=== PATIENT | female | born 2000 ===

== ENCOUNTER 2024-08-14 17:49 | Outpatient (CLI) | payer OTHER | END 2024-08-14 17:52 | disposition home or self-care (01) | LOC: PRENATAL 17:49 | PROVIDERS: ATTEND Obstetrics & Gynecology Maternal & Fetal Medicine | DX: O36.80X0 Pregnancy with inconclusive fetal viability, not applicable or unspecified (principal); Z36.82 Encounter for antenatal screening for nuchal translucency; Z14.8 Genetic carrier of other disease; Z3A.12 12 weeks gestation of pregnancy ==

== ENCOUNTER 2024-10-09 07:54 | Outpatient (CLI) | payer OTHER | END 2024-10-09 07:55 | disposition home or self-care (01) | LOC: PRENATAL 07:54 | PROVIDERS: ATTEND Obstetrics & Gynecology | DX: O44.00 Complete placenta previa NOS or without hemorrhage, unspecified trimester (principal); Z3A.20 20 weeks gestation of pregnancy ==

== ENCOUNTER 2025-01-01 08:05 | Outpatient (CLI) | payer OTHER | END 2025-01-01 08:06 | disposition home or self-care (01) | LOC: PRENATAL 08:05 | PROVIDERS: ATTEND Obstetrics & Gynecology Maternal & Fetal Medicine | DX: O26.849 Uterine size-date discrepancy, unspecified trimester (principal); O36.8130 Decreased fetal movements, third trimester, not applicable or unspecified; Z3A.32 32 weeks gestation of pregnancy ==

== ENCOUNTER 2025-01-28 12:15 | Inpatient (IN) | payer OTHER ==
[~2025-01-28] VITALS: Ht 160 cm; Wt 82.1 kg
[2025-01-28] VITALS (7 sets, daily range): BP systolic 110–141; BP diastolic 65–88
[2025-01-28] MEDS ORDERED: RINGERS SOLUTION,LACTATED 1,000 ML IV SCH (13:15)
[2025-01-28] MEDS ORDERED: FOLIC ACID20 MG PO (13:56)
[2025-01-28] MEDS ORDERED: PRENATAL + DHA1 EAC1 PO (13:56)
[2025-01-28] MEDS ORDERED: AMPICILLIN SODIUM 1,000 MG VIAL IV SCH ×2 (14:00)
[2025-01-28] MEDS ORDERED: BETAMETHASONE ACETATE,SOD PHOS 30 MG/5 ML ML IM SCH (14:00)
[2025-01-28 15:14] LABS: URINE APPEARANCE Cloudy; URINE BILIRRUBIN Small (NEGATIVE); URINE BLOOD Large; URINE COLOR Dark Yellow; URINE KETONE Trace (NEGATIVE); URINE LEUKOCYTE Small; URINE NITRATE Negative; URINE UROBILINOGEN 1.0 E.U./dl
[2025-01-28 15:18] LABS: URINE RBC 29.0 uL (0.0-20.8); URINE WBC 46.3 uL (0.0-23.2)
[2025-01-28 15:38] LABS: INR < 0.93
[2025-01-28 15:39] LABS: BASO % 0.2 % (0.1-1.2); EOS # 0.02 (0.04-0.54); EOS % 0.2 % (0.7-7.0); LYMPH # 3.32 (1.18-3.74); LYMPH % 38.2 % (19.3-53.1); MEAN PLATELET VOLUME 12.10 fl (9.4-12.4); MONO # 0.66 (0.24-0.82); MONO % 7.6 % (4.7-12.5); NEUT # 4.60 (1.56-6.13); NEUT % 53.1 % (34.0-71.1); RED CELL DISTRIBUTION WIDTH 13.8 % (11.6-14.4)
[2025-01-28 15:41] LABS: BUN CREA RATIO 20.0 (7.0-25.0); CREATININE SERUM 0.5 mg/dL (0.55-1.02); GFR 151.58; GLUCOSE FASTING 81.0 mg/dL (65-100); OSMOLALITY SERUM 277.0 MOSM/KG (275-295)
[2025-01-28 15:57] LABS: URINE BACTERIA > 9821.5 uL (0.0-1933); URINE CAST 0.58 uL (0.0-1.40); URINE CRYSTALS FEW /HPF; URINE EPITHELIAL CELLS > 201.7 uL (0.0-38.8); URINE GLUCOSE 100 MG/DL (NEGATIVE); URINE PROTEIN 100 (NEGATIVE)
[2025-01-28] MEDS ORDERED: OXYTOCIN 500 ML IV ONE (17:30)
[2025-01-28] MEDS ORDERED: MORPHINE SULFATE 4 MG/ML CARTRIDGE IV ONE (18:30)
[2025-01-28] MEDS ORDERED: ERYTHROMYCIN BASE OPHT 1GM EACH TUBE OP ONE ×2 (20:15→21:45)
[2025-01-28] MEDS ORDERED: OXYTOCIN 20 UNITS/1000ML RL PIGGYBAG IV ONE (20:15)
[2025-01-28] MEDS ORDERED: CHLORHEXIDINE GLUCONATE 120 ML BOTTLE TOP ONE (20:16)
[2025-01-28] MEDS ORDERED: LIDOCAINE HCL 1% 10ML VIAL ONE ×2 (20:16→20:44)
[2025-01-28] MEDS ORDERED: PNV,CALCIUM 72/IRON/FOLIC ACID 1 TAB TABLET PO SCH (21:24)
[2025-01-28] MEDS ORDERED: CHLORHEXIDINE GLUCONATE 120 ML BOTTLE TP SCH (21:30)
[2025-01-28] MEDS ORDERED: OXYTOCIN 1,000 ML IV SCH (21:30)
[2025-01-28] MEDS ORDERED: LIDOCAINE HCL 1% 10ML VIAL IJ ONE (21:45)
[2025-01-29 00:32] VITALS: BP 128/77
[2025-01-29 01:48] LABS: BASO % 0.2 % (0.1-1.2); EOS # 0.00 (0.04-0.54); EOS % 0.0 % (0.7-7.0); LYMPH # 2.82 (1.18-3.74); LYMPH % 16.1 % (19.3-53.1); MEAN PLATELET VOLUME 11.60 fl (9.4-12.4); MONO # 1.01 (0.24-0.82); MONO % 5.8 % (4.7-12.5); NEUT # 13.49 (1.56-6.13); NEUT % 76.9 % (34.0-71.1); RED CELL DISTRIBUTION WIDTH 13.7 % (11.6-14.4)
[2025-01-29 08:20] VITALS: BP 107/60
[2025-01-29 13:09] VITALS: BP 112/70
[2025-01-29 16:04] VITALS: BP 114/76
[2025-01-30 00:08] VITALS: BP 102/60
[2025-01-30 08:05] VITALS: BP 112/74
== END 2025-01-30 20:03 | disposition home or self-care (01) | DRG 805 ==
LOC: LDR 12:15 → OB/GYN 12:15 → LDR 14:47 → OB/GYN 20:53
PROVIDERS: General Practice; ADMIT Obstetrics & Gynecology; ATTEND Obstetrics & Gynecology
PROC: 10E0XZZ Delivery of Products of Conception, External Approach (ICD-10-PCS; principal; 2025-01-28)
PROC: 0W8NXZZ Division of Female Perineum, External Approach (ICD-10-PCS; 2025-01-28)
PROC: 4A1HXCZ Monitoring of Products of Conception, Cardiac Rate, External Approach (ICD-10-PCS; 2025-01-28)
DX: O41.03X0 Oligohydramnios, third trimester, not applicable or unspecified (principal); O60.14X0 Preterm labor third trimester with preterm delivery third trimester, not applicable or unspecified; Z37.0 Single live birth; Z3A.35 35 weeks gestation of pregnancy